=== PATIENT | female | born 1960 | race Caucasian/White ===

== ENCOUNTER 2018-10-02 10:40 | Day surgery (SDC) | payer BC ==
[~2018-10-02 10:40] MED LIST: CEFAZOLIN 2 GM/50 ML (PMX) 50 ML IVPB; ROCURONIUM 50 MG INJ; SOD CHLORIDE 0.9% 1,000 ML IV
[2018-10-02] MEDS: BUPIVACAINE 0.25% (MPF) 30 ML INJ (13:06)
[2018-10-02] MEDS ORDERED: MIDAZOLAM 1 MG/ML 2 ML INJ (13:22)
[2018-10-02] MEDS ORDERED: METOCLOPRAMIDE 10 MG INJ (14:19)
[2018-10-02] MEDS ORDERED: ONDANSETRON 4 MG INJ (14:19)
[2018-10-02] MEDS ORDERED: CEFAZOLIN 1 GM INJ (14:21)
[2018-10-02] MEDS ORDERED: ETOMIDATE 20 MG INJ (14:21)
[2018-10-02] MEDS ORDERED: LIDOCAINE 2% (SDV) 5 ML INJ (14:21)
[2018-10-02] MEDS ORDERED: PROPOFOL 20 ML (14:21)
[2018-10-02] MEDS ORDERED: ROPIVACAINE 0.5 % 30 ML VIAL (14:22)
[2018-10-02] MEDS ORDERED: NEOSTIGMINE 3 MG/3 ML SYRINGE (14:22)
[2018-10-02] MEDS ORDERED: GLYCOPYRROLATE 0.4 MG INJ (14:22)
[2018-10-02] MEDS ORDERED: HYDROCODONE/APAP (5/325) TAB PO ×2 (14:30)
[2018-10-02] MEDS ORDERED: ONDANSETRON 4 MG INJ IV (14:30)
[2018-10-02] MEDS ORDERED: morphine 2 MG INJ IV (14:30)
[2018-10-02] MEDS ORDERED: MEPERIDINE 25 MG INJ IV (15:00)
[2018-10-02] MEDS ORDERED: hydrALAzine 20 MG INJ IV (15:00)
[2018-10-02] MEDS ORDERED: LABETALOL HCL 20MG INJ IV (15:00)
[2018-10-02] MEDS ORDERED: FENTAnyl 50 MCG/ML VIAL IV (15:00)
[2018-10-02] MEDS ORDERED: DIPHENHYDRAMINE 50 MG INJ IV (15:00)
[2018-10-02] MEDS: HYDROmorphONE 1 MG/5 ML IV SYRINGE IV ×2 (15:07→15:29)
[2018-10-02] MEDS: ONDANSETRON 4 MG INJ IV (15:08)
== END 2018-10-02 16:42 | disposition home or self-care (01) ==
LOC: SDS 10:40
DX: K80.10 Calculus of gallbladder with chronic cholecystitis without obstruction (principal); I10 Essential (primary) hypertension; E78.5 Hyperlipidemia, unspecified
CPT/HCPCS: 47562; 88304